=== PATIENT | female | born 1980 | race Caucasian/White ===

== ENCOUNTER 2018-11-23 15:28 | Emergency (ER) | payer OTHER ==
[2018-11-23 15:45] VITALS: BP 124/76; PULSE 106; TEMP 100; BMI 23.9
--- NOTE | 2018-11-23 15:45 | PDOC ---
Rapid Medical Evaluation Chief Complaint: SIRS, Suspected/Possible Time Seen by Provider: 11/23/18 15:44 Medical Evaluation: Allergies Allergy/AdvReac Type Severity Reaction Status Date / Time No Known Allergies Allergy Verified 11/23/18 15:42 11/23/18 15:44 I have performed a brief in-person evaluation of this patient. The patient presents with a chief complaint of: fever, chills body aches, sore throat and malaise since yesterday. report taking Tylenol for fever this afternoon Pertinent physical exam findings: A&O x 3 I have ordered the following: rapid flu. rapid strep The patient will proceed to the ED for further evaluation. 11/23/18 15:49 Discharge Disposition - Diagnosis Malaise, Fever - Discharge Dispostion Condition at time of disposition: Stable - Referrals - Patient Instructions - Post Discharge Activity
[2018-11-23] MEDS ORDERED: ONDANSETRON *ODT* 4 MG TABLET SL ONE (16:24)
[2018-11-23] MEDS ORDERED: PENICILLIN G BENZATHINE 1,200,000 UNIT/2 ML PFS IM ONE (16:24)
[2018-11-23] MEDS ORDERED: IBUPROFEN 600 MG TABLET (FP) PO ONE ×2 (16:24→16:29)
[2018-11-23] MEDS ORDERED: PENICILLIN G BENZATHINE 2,400,000 UNIT/4 ML PFS ONE (16:29)
[2018-11-23] MEDS ORDERED: ONDANSETRON *ODT* 4 MG TABLET ONE (16:29)
--- NOTE | 2018-11-23 16:29 | PDOC ---
History of Present Illness - General Chief Complaint: SIRS, Suspected/Possible Stated Complaint: FEVER/ BODYACHE Time Seen by Provider: 11/23/18 15:44 History Source: Patient Exam Limitations: No Limitations Past History - Travel Traveled outside of the country in the last 30 days: No Close contact w/someone who was outside of country & ill: No - Past Medical History Allergies/Adverse Reactions: Allergies Allergy/AdvReac Type Severity Reaction Status Date / Time No Known Allergies Allergy Verified 11/23/18 15:42 Home Medications: Ambulatory Orders Nitrofurantoin Monohyd/M-Cryst [Macrobid -] 100 mg PO BID #14 capsule 07/16/13 No Home Medications 0 dose .ROUTE UTDICT 07/16/13 Ibuprofen 800 mg PO TID #30 tablet 11/23/18 Ondansetron [Zofran Odt -] 4 mg SL TID #10 od.tablet 11/23/18 COPD: No - Surgical History Cholecystectomy: Yes - Suicide/Smoking/Psychosocial Hx Smoking History: Never smoked Have you smoked in the past 12 months: No Information on smoking cessation initiated: No Hx Alcohol Use: No Drug/Substance Use Hx: No Review of Systems - Review of Systems Able to Perform ROS?: Yes Comments:: 11/23/18 16:27 CONSTITUTIONAL: Present: Fever, chills, body aches Absent: diaphoresis, generalized weakness, malaise, loss of appetite HEENT: Present: rhinorrhea, nasal congestion, throat pain. Absent: difficulty swallowing, mouth swelling, ear pain, eye pain, visual Changes CARDIOVASCULAR: Absent: chest pain, loss of consciousness, palpitations, irregular heart rate, peripheral edema RESPIRATORY: Present: Cough Absent: shortness of breath, dyspnea with exertion, orthopnea, wheezing, stridor, hemoptysis GASTROINTESTINAL: Present: nausea Absent: abdominal pain, abdominal distension, nausea, vomiting, diarrhea, constipation, melena, hematochezia SKIN: Absent: rash, itching, pallor NEUROLOGIC: Present: headache Absent: focal weakness or paresthesias, dizziness, unsteady gait, seizure, mental status changes, bladder or bowel incontinence Is the patient limited Estonian proficient: No *Physical Exam - Vital Signs Last Vital Signs Temp Pulse Resp BP Pulse Ox 100 F H 106 H 20 124/76 98 11/23/18 15:43 11/23/18 15:43 11/23/18 15:43 11/23/18 15:43 11/23/18 15:43 - Physical Exam Comments: 11/23/18 16:29 GENERAL: Well developed, well nourished. Awake and alert. No acute distress. HEENT: Normocephalic, atraumatic. PERRLA, EOMI. No conjunctival pallor. Sclera are non- icteric. Moist mucous membranes. Oropharynx is erythematous without exudate or edema NECK: Supple. Full ROM. No JVD. Carotid pulses 2+ and symmetric, without bruits. No thyromegaly. No lymphadenopathy. CARDIOVASCULAR: Regular rate and rhythm. No murmurs, rubs, or gallops. Distal pulses are 2+ and symmetric. PULMONARY: No evidence of respiratory distress. Lungs clear to auscultation bilaterally. No wheezing, rales or rhonchi. SKIN: Warm and dry. Normal capillary refill. No rashes. No jaundice. NEUROLOGICAL: Alert, awake, appropriate. Cranial nerves 2-12 intact. No deficits to light touch and temperature in face, upper extremities and lower extremities. No motor deficits in the in face, upper extremities and lower extremities. Normoreflexic in the upper and lower extremities. Normal speech. Toes are down- going bilaterally. Gait is normal without ataxia. PSYCHIATRIC: Cooperative. Good eye contact. Appropriate mood and affect. Medical Decision Making - Medical Decision Making 11/23/18 16:53 The patient is a 38-year-old female no past medical history who presents with 1 day of fever, sore throat, body aches and headaches. She states she took Tylenol some relief of her symptoms. She states it is difficult to swallow also admits to associated nausea. Denies cough, difficulty breathing, shortness of breath, chest pain, frequency, urgency and hematuria, vomiting and diarrhea. A/P: Strep pharyngitis On exam throat is erythematous with no exudate or edema Rapid strep test is positive, negative flu test Bicillin given in the ER. Patient monitored. No reaction. Zofran, Motrin given in the ER Patient opted primary care doctor. Discharge home I discussed the physical exam findings, ancillary test results and final diagnoses with the patient. I answered all of the patient's questions. The patient was satisfied with the care received and felt comfortable with the discharge plan and treatment plan. The Patient agrees to follow up with the primary care physician/specialist within 24-72 hours. Return precautions were given. *DC/Admit/Observation/Transfer Diagnosis at time of Disposition: Strep pharyngitis - Discharge Dispostion Disposition: HOME Condition at time of disposition: Stable Decision to Admit order: No - Prescriptions Prescriptions: Ibuprofen 800 mg PO TID #30 tablet Ondansetron [Zofran Odt -] 4 mg SL TID #10 od.tablet - Referrals Referrals: Nathan Taylor MD [Staff Physician] - - Patient Instructions Printed Discharge Instructions: DI for Strep Throat Additional Instructions: You have strep throat. This is a bacterial infection. You were treated with a shot of bicillin. This is a one time antibiotic shot. You may take Motrin 800 mg every 8 hours as needed for pain or fever. Take zofran every 8 hours as needed for nausea Warm water gargles and cough drops and just may also help her symptoms. Please throw way your toothbrush 3 days into treatment to prevent reinfection. Please follow up with your primary care doctor next week. Return to emergency department if you have worsening pain, difficulty swallowing , changes in your voice, lightheadedness, dizziness, or any changes in your symptoms. - Post Discharge Activity Forms/Work/School Notes: Back to Work
== END 2018-11-23 16:59 | disposition home or self-care (01) ==
LOC: JERFT 15:28
DX: J02.0 Streptococcal pharyngitis (principal); B95.0 Streptococcus, group A, as the cause of diseases classified elsewhere
CPT/HCPCS: 87804; 87880; 99281-25; Q0162

== ENCOUNTER 2022-06-07 10:03 | Emergency (ER) | payer OTHER ==
[2022-06-07 10:42] VITALS: BP 101/57; PULSE 64; RESP 16; TEMP 98.2; BMI 23.1
[2022-06-07] MEDS ORDERED: ACETAMINOPHEN 500 MG TABLET (FP) PO ONE (11:21)
[2022-06-07 12:24] LABS: THROAT:GRP A STREP DETECTED (NOTDETECTED)
[2022-06-07] MEDS ORDERED: AMOXICILLIN 500 MG CAPSULE (FP) PO ONE (12:39)
[2022-06-07] MEDS ORDERED: AMOXICILLIN 250 MG CAPSULE ONE (12:52)
[2022-06-07] MEDS ORDERED: ACETAMINOPHEN 500 MG TABLET (FP) ONE (13:05)
== END 2022-06-07 13:00 | disposition home or self-care (01) ==
LOC: JER 10:03
DX: J02.0 Streptococcal pharyngitis (principal)
CPT/HCPCS: 0241U-QW; 87651; 99283-25

== ENCOUNTER 2023-02-27 10:42 | Emergency (ER) | payer OTHER ==
[2023-02-27 10:53] VITALS: BP 147/84; PULSE 63; RESP 18; TEMP 98.2; BMI 27.4
[2023-02-27] MEDS ORDERED: ONDANSETRON 4 MG TABLET PO ONE (11:37)
[2023-02-27] MEDS ORDERED: ONDANSETRON *ODT* 4 MG TABLET ONE (11:39)
[2023-02-27] MEDS ORDERED: IBUPROFEN 600 MG TABLET (FP) PO ONE ×2 (13:27→13:30)
[2023-02-27 13:31] LABS: EPI CELLS 27 /uL (0-25.1); HYALINE CASTS 1 /uL (0-3.1); URINE APPEARANCE CLOUDY; URINE BACTERIA 6988 /uL (0-1359); URINE BILIRUBIN NEGATIVE (NEGATIVE); URINE COLOR YELLOW; URINE GLUCOSE (UA) NEGATIVE (NEGATIVE); URINE KETONE NEGATIVE (NEGATIVE); URINE LEUK ESTERASE NEGATIVE (NEGATIVE); URINE NITRITE POSITIVE (NEGATIVE); URINE PROTEIN NEGATIVE (NEGATIVE); URINE RBC 40 /uL (0-23.9); URINE WBC 13 /uL (0-25.8)
[2023-02-27 13:44] LABS: HCG,QUALITATIVE URINE Negative
== END 2023-02-27 14:21 | disposition home or self-care (01) ==
LOC: JER 10:42 → JERFT 10:42
DX: R10.30 Lower abdominal pain, unspecified (principal); R11.2 Nausea with vomiting, unspecified; R53.81 Other malaise; R50.9 Fever, unspecified; R10.2 Pelvic and perineal pain; N30.01 Acute cystitis with hematuria; Z20.822 Contact with and (suspected) exposure to COVID-19
CPT/HCPCS: 0241U-QW; 76856-TC; 81003; 84703; 87086; 87186; 99284-25

== ENCOUNTER 2023-09-14 07:58 | Emergency (ER) | payer OTHER ==
[2023-09-14 08:04] VITALS: BP 158/90; PULSE 85; RESP 18; TEMP 98.2; BMI 26.4
[2023-09-14] MEDS ORDERED: KETOROLAC TROMETHAMINE 30 MG/1 ML VIAL ONE (08:54)
[2023-09-14] MEDS: KETOROLAC TROMETHAMINE 30 MG/1 ML VIAL IM ONE (09:00)
[2023-09-14] MEDS ORDERED: ONDANSETRON *ODT* 4 MG TABLET ONE ×2 (09:48→09:50)
[2023-09-14] MEDS: ONDANSETRON 4 MG TABLET PO ONE (09:51)
== END 2023-09-14 10:21 | disposition home or self-care (01) ==
LOC: JERFT 07:58
PROC: 3E0233Z Introduction of Anti-inflammatory into Muscle, Percutaneous Approach (ICD-10-PCS; principal; 2023-09-14)
DX: R51.9 Headache, unspecified (principal); B34.9 Viral infection, unspecified; R05.9 Cough, unspecified; R07.0 Pain in throat; R11.0 Nausea; R19.7 Diarrhea, unspecified; Z20.822 Contact with and (suspected) exposure to COVID-19
CPT/HCPCS: 0241U-QW; 87070; 96372; 99284-25